=== PATIENT | male | born 1960 | race Caucasian/White ===

== ENCOUNTER 2017-12-19 15:38 | Outpatient (CLI) | payer BC ==
--- NOTE | 2017-12-19 17:14 | MRI ---
MRI LUMBAR SPINE 12/19/17 HISTORY: Lumbar radiculopathy, M54.16. Multiplanar and multisequence noncontrast enhanced MRI images of the lumbar spine obtained. RADIOGRAPHIC FINDINGS: T12-L1: Unremarkable. L1-2: Disc desiccation is seen. There is a broad based disc bulge with bilateral facet hypertrophy. N o significant degree of central or lateral recess stenosis seen. The neural foramen are patent. L2-3: Disc desiccation is seen. There is mild facet hypertrophy. The central canal and neural foramen are patent. L3-4: Disc desiccation is seen. There is a broad based disc bulge with bilateral facet and ligamentum flavum hypertrophy. This results in mild central and lateral recess stenosis. An annular fissure is seen in the posterior aspect of the annulus fibrosis. Mild bilateral neural foraminal narrowing is se en. L4-5: Disc desiccation is seen. There is a broad based disc protrusion with bilateral facet and ligam entum flavum hypertrophy resulting in moderate to severe central and lateral recess L4-5 spinal steno sis. Mild bilateral neural foraminal narrowing is seen. L5-S1: Disc desiccation is seen. There is a broad based disc bulge with bilateral facet hypertrophy r esulting in mild central stenosis. The neural foramen are patent. IMPRESSION: Multilevel disc degenerative changes with moderate to severe L4-5 central and lateral recess stenosis . POS: [facility]
== END 2017-12-19 15:39 | disposition home or self-care (01) ==
LOC: SCSMRI 15:38
PROVIDERS: ATTEND Family Medicine
DX: M47.26 Other spondylosis with radiculopathy, lumbar region (principal); M48.061 Spinal stenosis, lumbar region without neurogenic claudication
CPT/HCPCS: 72148